=== PATIENT | male | born 1975 | race African-American/Black ===

== ENCOUNTER 2025-02-10 02:59 | Emergency (ER) | payer OTHER ==
[2025-02-10 03:09] VITALS: TEMP 98.2; BMI 22.8
[2025-02-10] MEDS ORDERED: ACETAMINOPHEN 325 MG TABLET (FP) ONE (03:40)
[2025-02-10] MEDS: ACETAMINOPHEN 500 MG TABLET (FP) PO ONE (03:48)
[2025-02-10] MEDS ORDERED: LIDOCAINE 5% TOPICAL PATCH ONE (06:18)
[2025-02-10] MEDS: LIDOCAINE 5% TOPICAL PATCH TP ONE (06:20)
[2025-02-10 08:29] VITALS: BP 113/79; PULSE 110; RESP 20
== END 2025-02-10 09:29 | disposition home or self-care (01) ==
LOC: JER 02:59
DX: S12.601A Unspecified nondisplaced fracture of seventh cervical vertebra, initial encounter for closed fracture (principal); R51.9 Headache, unspecified; W06.XXXA Fall from bed, initial encounter; Y92.129 Unspecified place in nursing home as the place of occurrence of the external cause
CPT/HCPCS: 70450-TC; 71045-TC-FY; 72125-TC; 72170-TC-FY; 73030-TC-LT-FY; 99284-25